=== PATIENT | female | born 1995 | race Asian ===

== ENCOUNTER 2016-12-08 19:59 | Emergency (ER) | payer BC ==
[2016-12-08] MEDS ORDERED: NS 0.9% 1000 ML* 1,000 ML IV ONE (20:16)
[2016-12-08] MEDS ORDERED: Acetaminophen TAB* 325 MG PO ONE (20:16)
[2016-12-08 20:54] LABS: Hematocrit 36 % (35-47); Hemoglobin 11.3 g/dl (12.0-16.0); Mean Corpuscular HGB Conc 32 g/dl (31-36); Mean Corpuscular Hemoglobin 24 pg (27-31); Mean Corpuscular Volume 75 fL (80-97); Mean Platelet Volume 8 um3 (7.4-10.4); Red Blood Count 4.76 10^6/ul (4.0-5.4); Red Cell Distribution Width 19 % (10.5-15); White Blood Count 7.1 10^3/ul (3.5-10.8)
[2016-12-08 20:55] LABS: Comments Flag Yes
[2016-12-08 20:56] LABS: Add Diff/Slide Review? Slide Review Added
[2016-12-08 21:08] LABS: ALT 21 U/L (7-52); Albumin 3.7 g/dL (3.2-5.2); Alkaline Phosphatase 76 U/L (34-104); BUN/Creatinine Ratio 9.2 (8-20); Blood Urea Nitrogen 8 mg/dL (6-24); CO2 Carbon Dioxide 22 mmol/L (22-32); Calcium 9.2 mg/dL (8.6-10.3); Chloride 100 mmol/L (101-111); EGFR African American 104.7 (>60); EGFR Non-African American 81.4 (>60); Globulin 3.9 g/dL (2-4); Glucose 100 mg/dL (70-100); Lipase 36 U/L (11.0-82.0); Sodium 132 mmol/L (133-145); Total Protein 7.6 g/dL (6.4-8.9)
[2016-12-08 21:26] LABS: AST 23 U/L (13-39); Anion Gap 10 mmol/L (2-11); Potassium 3.8 mmol/L (3.5-5.0)
--- NOTE | 2016-12-08 21:39 | RAD ---
INDICATION: Fever COMPARISON: None TECHNIQUE: PA and lateral dual-energy views were obtained. FINDINGS: Bones/Soft Tissues: There are no acute bony findings. There is a mild scoliotic deformity. Cardiomediastinal: The cardiomediastinal silhouette is normal. Lungs: There are no infiltrates. Pleura: There are no pleural effusions. Other: None IMPRESSION: NO ACTIVE DISEASE.
[2016-12-08 21:40] LABS: Urine Bacteria 2+ (Absent); Urine Bilirubin Negative (Negative); Urine Glucose Negative (Negative); Urine Nitrite Negative (Negative)
--- NOTE | 2016-12-08 21:43 | RAD ---
INDICATION: Left flank pain COMPARISON: None TECHNIQUE: Noncontrast axial source images were acquired from the level hemidiaphragms to the symphysis pubis as part of CT imaging for renal stone. Lung bases: The lung bases are clear. Liver: The liver is normal in size. Noncontrast imaging shows no evidence of a hepatic mass or ductal dilatation. Gallbladder: There are no calcified gallstones. There is no evidence of wall thickening or pericholecystic fluid.. Spleen: The spleen is normal in size. The noncontrast CT appearance is normal. Pancreas: Noncontrast imaging shows no pancreatic mass or ductal dilitation. Adrenal glands: No masses are identified. Kidneys/Bladder: There is a 4 mm left UVJ calculus with mild to moderate obstructive findings. There are no other calcifications of urinary significance. There is no renal mass identified on noncontrast CT imaging. The bladder is otherwise unremarkable.. Adenopathy: There is no evidence of intraperitoneal or retroperitoneal adenopathy. Evaluation is limited without oral contrast. Fluid collections: There are no free or localized fluid collections. Vessels: The aorta and iliac vessels are normal in caliber. There are no significant atherosclerotic changes. The IVC appears normal Pelvic organs: The uterus and adnexa appear normal GI tract: Evaluation of the bowel is limited without oral contrast. The stomach, small bowel, and lower GI tract appear grossly normal. There are no obstructive findings. The appendix is visualized and appears normal. Soft tissues: No soft tissue abnormalities of the extraperitoneal abdomen or pelvis are identified. Osseous structures: There are no acute osseous findings. IMPRESSION: 4 MM LEFT UVJ CALCULUS WITH ASSOCIATED OBSTRUCTIVE FINDINGS.
[2016-12-08] MEDS ORDERED: Levofloxacin TAB* 500 MG PO ONE (22:30)
[2016-12-08] MEDS ORDERED: Tamsulosin CAP* 0.4 MG PO ONE (22:31)
--- NOTE | 2016-12-08 23:12 | ED ---
Shola Abernathy Adam, scribed for JimjanEfrain on 12/08/16 at 2017 . Abdominal Pain/Female - HPI Summary HPI Summary: Pt is a 21 year old female presenting with pain in the left side of her abdomen/ flank. She states that the pain first set on 2 days ago accompanied by an episode of vomiting. The pain resolved, though, and she was able to go to sleep. Yesterday she had no symptoms. Today she woke up with a LORD which resolved after she took ibuprofen. However, several hours later the LORD returned and so did the left-sided abdominal pain. She states that the pain was severe until about 30 minutes ago when it began to dissipate. She also c/o burning during urination and increased frequency. She denies hematuria. Pt is currently in her MP and she recently went off control. She denies any PMHx. Her temperature in the exam room is 101.2 F. - History of Current Complaint Chief Complaint: EDFlankPain Stated Complaint: ABD PAIN/FIVE STAR Time Seen by Provider: 12/08/16 20:09 Hx Obtained From: Patient Hx Last Menstrual Period: Currently Onset/Duration: Gradual Onset, Lasting Days, Still Present Timing: Intermittent Episode Lasting - Hours Severity Initially: Moderate Severity Currently: Mild Pain Intensity: 5 Pain Scale Used: 0-10 Numeric Location: Discrete At: LUQ, Discrete At: LLQ, Flank - Left Aggravating Factor(s): Nothing Alleviating Factor(s): Nothing Associated Signs and Symptoms: Positive: Urinary Symptoms - Burning, frequency, Vomiting, Other: - Headache Allergies/Adverse Reactions: Allergies Allergy/AdvReac Type Severity Reaction Status Date / Time No Known Allergies Allergy Verified 12/08/16 20:05 PMH/Surg Hx/FS Hx/Imm Hx Previously Healthy: Yes Infectious Disease History: No Infectious Disease History: Denies: Traveled Outside the [place] in Last 30 Days - Family History Known Family History: Positive: Diabetes - Type 2, Other - Thyroid disease ( mother) - Social History Occupation: Student Lives: With Family - Mother Review of Systems Positive: Abdominal Pain - Left side, Vomiting Positive: burning, frequency, flank pain - Left. Negative: hematuria Positive: Headache All Other Systems Reviewed And Are Negative: Yes Physical Exam Triage Information Reviewed: Yes Vital Signs On Initial Exam: Initial Vitals Temp Pulse Resp BP Pulse Ox 100.0 F 95 16 134/87 100 03/09/17 20:01 12/08/16 20:01 12/08/16 20:01 12/08/16 20:01 12/08/16 20:01 Vital Signs Reviewed: Yes Appearance: Positive: Well-Appearing, No Pain Distress Skin: Positive: Warm, Skin Color Reflects Adequate Perfusion, Dry Head/Face: Positive: Normal Head/Face Inspection Eyes: Positive: EOMI, KEVIN ENT: Positive: Normal ENT inspection Neck: Positive: Supple, Nontender Respiratory/Lung Sounds: Positive: Clear to Auscultation, Breath Sounds Present Cardiovascular: Positive: RRR, Pulses are Symmetrical in both Upper and Lower Extremities Abdomen Description: Positive: Soft, Other: - Tenderness in the left flank Bowel Sounds: Positive: Present Musculoskeletal: Positive: Normal, Strength/ROM Intact Neurological: Positive: Normal, Sensory/Motor Intact, Alert, Oriented to Person Place, Time Diagnostics - Vital Signs Vital Signs Temp Pulse Resp BP Pulse Ox 12/08/16 20:01 100.0 F 95 16 134/87 100 - Laboratory Result Diagrams: 12/08/16 20:40 12/08/16 20:40 Lab Statement: Any lab studies that have been ordered have been reviewed, and results considered in the medical decision making process. - Radiology CXR Radiology Interpretation Completed By: Radiologist - IMPRESSION: NO ACTIVE DISEASE. - CT A/P CT Interpretation Completed By: Radiologist - IMPRESSION: 4 MM LEFT UVJ CALCULUS WITH ASSOCIATED OBSTRUCTIVE FINDINGS. - Additional Comments Diagnostic Additional Comments: Influenza A (Rapid) - Negative Influenza B (Rapid) - Negative Abdominal Pain Fem Course/Dx - Course Course Of Treatment: Pt was given Motrin, Levaquin, and Flomax and advised to return to the ED in the next 72 hours for high fever, flank pain, or excruciating pain. Otherwise, she will follow up with Urology in 3 days. - Diagnoses Provider Diagnoses: UTI (urinary tract infection), Renal calculi Discharge - Discharge Plan Condition: Stable Disposition: HOME Prescriptions: Ibuprofen TAB* [Motrin TAB* 600 MG] 600 mg PO Q8H PRN #21 tab PRN Reason: Pain Levofloxacin TAB* [Levaquin TAB*] 500 mg PO DAILY #9 tab Tamsulosin HCl [Flomax] 0.4 mg PO ONCE #14 cap Patient Education Materials: Urinary Tract Infection in Women (ED), Kidney Stones (ED) Referrals: Andrés Savage MD [Medical Doctor] - Additional Instructions: ADVISED TO COME BACK IN 72 HRS IF SYMPTOMS GETS WORSE HIGH FEVER AND SEVERE FLANK PAINS. OTHERWISE FOLLOW UP WITH DR. SAVAEG FROM UROLOGY IN THREE DAYS. The documentation as recorded by the catinaibShola knox Adam accurately reflects the service I personally performed and the decisions made by me, Efrain Rivera.
[2016-12-08 23:30] VITALS: BP 127/54
--- NOTE | 2016-12-10 15:26 | PN ---
Progress Note - Progress Note Note: Urine culture preliminary grew Proteus Mirabilis: Patient placed on levaquin appropriately for flank pain. Will await culture results. Likely sensitive.
--- NOTE | 2016-12-11 11:13 | PN ---
Progress Note - Progress Note Note: Final urine culture sensitive for Levaquin so can continue current medication as no further action is needed.
== END 2016-12-08 23:28 | disposition home or self-care (01) ==
LOC: ED 19:59
DX: N39.0 Urinary tract infection, site not specified (principal); N20.0 Calculus of kidney; R10.84 Generalized abdominal pain; R51 Headache; R11.10 Vomiting, unspecified
CPT/HCPCS: 36415; 71020; 74176; 80053; 81003; 81015; 83690; 84702; 85025; 87040; 87077; 87086; 87186; 87502; 99283; A9270-GY